=== PATIENT | female | born 2000 | race Caucasian/White ===

== ENCOUNTER 2023-09-07 10:59 | Outpatient (CLI) | payer OTHER | END 2023-09-07 11:00 | disposition home or self-care (01) | LOC: BICCT 10:59 | PROVIDERS: ATTEND Internal Medicine Gastroenterology | DX: K82.9 Disease of gallbladder, unspecified (principal); K52.9 Noninfective gastroenteritis and colitis, unspecified; R10.31 Right lower quadrant pain; F31.9 Bipolar disorder, unspecified; Z33.1 Pregnant state, incidental | CPT/HCPCS: 74177 ==